=== PATIENT | female | born 1990 | race Caucasian/White ===

== ENCOUNTER 2018-05-13 11:54 | Emergency (ER) | payer OTHER ==
--- NOTE | 2018-05-13 12:09 | EDPHY ---
H & P Time Seen by Provider: 05/13/18 12:08 HPI/ROS: CHIEF COMPLAINT: Chest pain HISTORY OF PRESENT ILLNESS: 28-year-old woman presents left and central chest pain which has radiated to the right today. She started having symptoms about 2 weeks ago at home in [place] and describes that symptoms come and go and last about 30 sec when they are present. She describes it as"not comfortable"and "dull"with occasional radiation to left arm. Today she has symptoms also in the right chest. She had a little bit of a cold about a month ago but that is resolved. Not associated with cough or hemoptysis or shortness of breath or fever or chills or leg swelling. REVIEW OF SYSTEMS: Eye: no change in vision ENT: Was diagnosed with an ear infection on the right side on Sunday, feels better now on amoxicillin and Flonase. Cardiac: HPI Pulmonary: HPI Abdomen: no vomiting, diarrhea, abdominal pain Musculoskeletal: No leg swelling Skin: no rash Neuro: no headache Constitutional: no fever : no urinary symptoms A comprehensive 10 point review of systems is otherwise negative aside from elements mentioned in the history of present illness. PAST MEDICAL HISTORY: Anxiety, depression. Negative for diabetes hypertension or hypercholesterolemia. Family history: Negative for premature coronary disease or venous thromboembolism. Social history: Negative for tobacco or cocaine. She did fly here from [place] but no prolonged driving. General Appearance: Alert and conversant, cooperative. Eyes: No scleral icterus. ENT, Mouth: Normal mucous membranes. Normal tympanic membranes bilaterally Respiratory: Normal respiratory effort, breath sounds equal, lungs are clear to auscultation. Full sentences, no crepitus, no wheezing. Cardiovascular: Regular rate and rhythm. Gastrointestinal: Abdomen is soft and non tender. Neurological: Alert, face symmetric, normal motor and sensory in extremities. Skin: Warm and dry, no rashes. Musculoskeletal: No calf tenderness. Psychiatric: Not agitated. Mildly anxious. Emergency Department course/MDM: Patient's age is less than 50, heart rate less than 100, normal oxygen saturation. No mopped assist, no recent surgery, not on hormones, no history of PE or DVT, normal legs. PERC negative for pulmonary embolism. More likely to be muscular or inflammatory. Plan for EKG, chest x-ray troponin and discharge if normal. Emphasize the patient definitive diagnosis not made in ED, but I think emergent medical or surgical condition is unlikely. She states she is comfortable with that conclusion, will follow-up when she returns home to [place]. Smoking Status: Never smoked Constitutional: Initial Vital Signs Temperature (C) 36.9 C 05/13/18 12:00 Heart Rate 86 05/13/18 12:00 Respiratory Rate 16 05/13/18 12:00 Blood Pressure 139/88 H 05/13/18 12:00 O2 Sat (%) 97 05/13/18 12:00 O2 Delivery Mode Room Air Allergies/Adverse Reactions: meperidine [From Demerol] Allergy (Verified 05/13/18 12:00) Medical Decision Making - Diagnostics EKG Interpretation: 12-lead EKG interpreted by me; official reading is in computer system. My interpretation is is sinus rhythm rate 67 with APC and no ischemic changes. Imaging Results: Imaging Impressions Chest X-Ray 05/13/18 12:21 Impression: No acute pulmonary disease. Imaging: I viewed and interpreted images myself Differential Diagnosis: Differential diagnosis considered for chest pain including but not limited to myocardial ischemia, aortic dissection, pericarditis, pulmonary embolus, chest wall pain, pleural inflammation and pulmonary infectious causes. - Data Points Laboratory Results: Laboratory Results 05/13/18 12:10 05/13/18 12:10 05/13/18 05/13/18 05/13/18 12:14 12:10 12:10 WBC 9.53 10^3/uL H 10^3/uL (3.80-9.50) RBC 5.26 10^6/uL 10^6/uL (4.18-5.33) Hgb 15.9 g/dL g/dL (12.6-16.3) Hct 47.4 % H % (38.0-47.0) MCV 90.1 fL fL (81.5-99.8) MCH 30.2 pg pg (27.9-34.1) MCHC 33.5 g/dL g/dL (32.4-36.7) RDW 13.5 % % (11.5-15.2) Plt Count 296 10^3/uL 10^3/uL (150-400) MPV 10.8 fL fL (8.7-11.7) Neut % (Auto) 62.0 % % (39.3-74.2) Lymph % (Auto) 26.3 % % (15.0-45.0) Luna % (Auto) 8.3 % % (4.5-13.0) Eos % (Auto) 2.5 % % (0.6-7.6) Baso % (Auto) 0.3 % % (0.3-1.7) Nucleat RBC Rel Count 0.0 % % (0.0-0.2) Absolute Neuts (auto) 5.90 10^3/uL 10^3/uL (1.70-6.50) Absolute Lymphs (auto) 2.51 10^3/uL 10^3/uL (1.00-3.00) Absolute Monos (auto) 0.79 10^3/uL 10^3/uL (0.30-0.80) Absolute Eos (auto) 0.24 10^3/uL 10^3/uL (0.03-0.40) Absolute Basos (auto) 0.03 10^3/uL 10^3/uL (0.02-0.10) Absolute Nucleated RBC 0.00 10^3/uL 10^3/uL (0-0.01) Immature Gran % 0.6 % % (0.0-1.1) Immature Gran # 0.06 10^3/uL 10^3/uL (0.00-0.10) Sodium 137 mEq/L mEq/L (135-145) Potassium 4.4 mEq/L mEq/L (3.5-5.2) Chloride 104 mEq/L mEq/L (97-110) Carbon Dioxide 25 mEq/l mEq/l (22-31) Anion Gap 8 mEq/L mEq/L (6-14) BUN 14 mg/dL mg/dL (7-23) Creatinine 0.8 mg/dL mg/dL (0.6-1.0) Estimated GFR > 60 Glucose 99 mg/dL mg/dL (70-100) Calcium 9.5 mg/dL mg/dL (8.5-10.4) POC Troponin I 0.00 ng/mL ng/mL (0.00-0.08) Beta HCG, Quant 05/13/18 11:45 WBC RBC Hgb Hct MCV MCH MCHC RDW Plt Count MPV Neut % (Auto) Lymph % (Auto) Luna % (Auto) Eos % (Auto) Baso % (Auto) Nucleat RBC Rel Count Absolute Neuts (auto) Absolute Lymphs (auto) Absolute Monos (auto) Absolute Eos (auto) Absolute Basos (auto) Absolute Nucleated RBC Immature Gran % Immature Gran # Sodium Potassium Chloride Carbon Dioxide Anion Gap BUN Creatinine Estimated GFR Glucose Calcium POC Troponin I Beta HCG, Quant < 2.39 mIU/mL mIU/mL (0.00-4.83) Point of Care Test Results: Chemistry 05/13/18 12:14 POC Troponin I 0.00 ng/mL ng/mL (0.00-0.08) Departure - Departure Disposition: Home, Routine, Self-Care Clinical Impression: Chest pain Qualifiers: Chest pain type: unspecified Qualified Code(s): R07.9 - Chest pain, unspecified Condition: Good Instructions: Chest Pain (ED) Referrals: Mele Ingram MD [[facility] Primary Care Provider] - As per Instructions
--- NOTE | 2018-05-13 12:21 | CPEKG ---
Test Reason : OPEN Blood Pressure : / mmHG Vent. Rate : 067 BPM Atrial Rate : 067 BPM P-R Int : 175 ms QRS Dur : 084 ms QT Int : 399 ms P-R-T Axes : 045 083 032 degrees QTc Int : 422 ms Sinus rhythm Atrial premature complex Confirmed by Alex Rodríguez ([id number]) on 05/13/2018 12:21:10 PM Referred By: Confirmed By:Alex Rodríguez
[2018-05-13 12:26] LABS: PLATELET COUNT 296 10^3/uL (150-400)
[2018-05-13 14:40] VITALS: BP 123/64
== END 2018-05-13 14:17 | disposition home or self-care (01) ==
DX: R07.9 Chest pain, unspecified (principal); F41.9 Anxiety disorder, unspecified
CPT/HCPCS: 84484-ER